=== PATIENT | male | born 1965 | race Hispanic/Latino ===

== ENCOUNTER 2019-12-15 10:49 | Emergency (ER) | payer BC, SELFPAY ==
--- NOTE | 2019-12-15 11:16 | RAD ---
LEFT WRIST 3 VIEWS: HISTORY: Left wrist pain, injury FINDINGS: There is a mildly angulated comminuted fracture of the distal radius.
[2019-12-15] MEDS ORDERED: Ibuprofen 800 MG TAB ONE (11:27)
== END 2019-12-15 11:40 | disposition home or self-care (01) ==
LOC: NAV ERS 10:49
DX: S52.502A Unspecified fracture of the lower end of left radius, initial encounter for closed fracture (principal); F17.210 Nicotine dependence, cigarettes, uncomplicated; I10 Essential (primary) hypertension; V89.9XXA Person injured in unspecified vehicle accident, initial encounter; Z79.899 Other long term (current) drug therapy
CPT/HCPCS: 29125

== ENCOUNTER 2020-01-30 14:12 | Emergency (ER) | payer SELFPAY | END 2020-01-30 14:45 | disposition home or self-care (01) | LOC: NAV ERS 14:12 | DX: M79.602 Pain in left arm (principal); S52.502D Unspecified fracture of the lower end of left radius, subsequent encounter for closed fracture with routine healing; I10 Essential (primary) hypertension; F17.210 Nicotine dependence, cigarettes, uncomplicated | CPT/HCPCS: 99282 ==

== ENCOUNTER 2020-11-04 19:03 | Emergency (ER) | payer SELFPAY ==
[2020-11-04] MEDS ORDERED: Sulfameth/Trimethoprim DS 800-160mg TAB ONE (19:38)
== END 2020-11-04 19:40 | disposition home or self-care (01) ==
LOC: NAV ERS 19:03
DX: L08.9 Local infection of the skin and subcutaneous tissue, unspecified (principal); I10 Essential (primary) hypertension; F17.210 Nicotine dependence, cigarettes, uncomplicated
CPT/HCPCS: 99282

== ENCOUNTER 2022-03-05 07:43 | Emergency (ER) | payer OTHER, SELFPAY | END 2022-03-05 09:06 | disposition home or self-care (01) | LOC: NAV ERS 07:43 | DX: L03.116 Cellulitis of left lower limb (principal); I10 Essential (primary) hypertension; F17.210 Nicotine dependence, cigarettes, uncomplicated | CPT/HCPCS: 99283 ==

== ENCOUNTER 2022-03-13 18:52 | Emergency (ER) | payer BC, SELFPAY | END 2022-03-13 20:24 | disposition home or self-care (01) | LOC: NAV ERS 18:52 | DX: S91.302A Unspecified open wound, left foot, initial encounter (principal); T69.022A Immersion foot, left foot, initial encounter; L30.1 Dyshidrosis [pompholyx]; I10 Essential (primary) hypertension; F17.210 Nicotine dependence, cigarettes, uncomplicated; X58.XXXA Exposure to other specified factors, initial encounter | CPT/HCPCS: 99283 ==

== ENCOUNTER 2022-10-04 08:29 | Emergency (ER) | payer BC ==
[2022-10-04 09:14] LABS: #Eosinphils 0.1 thou/uL (0.0-0.7); #Lymphocytes 0.9 thou/uL (1.20-3.40); #Monocytes 0.4 thou/uL (0.11-0.59); #Neutrophils 3.7 thou/uL (1.40-6.50); %Eosinophils 1.6 % (0.0-10.0); %Lymphocytes 17.9 % (21.0-51.0); %Monocytes 7.5 % (0.0-10.0); Hemoglobin 13.8 g/dL (14.0-18.0); Mean Corpuscular HGB CONC 34.3 g/dL (32.0-36.0); Mean Corpuscular Hemoglobin 31.6 pg (27.0-31.0); Mean Corpuscular Volume 92.3 fl (78.0-98.0); Platelet Count 169 10x3/uL (130-400); RBC Distribution Width 10.7 % (11.5-14.5); Red Blood Cell (RBC) Count 4.37 mill/uL (4.70-6.10); White Blood Cell (WBC) Count 5.1 10x3/uL (4.8-10.8)
[2022-10-04 10:03] LABS: ALT (SGPT) 21 U/L (8-55); AST (SGOT) 17 U/L (5-34); Alkaline Phosphatase 146 U/L (40-110); Anion Gap 12 mmol/L (10-20); BUN (Urea Nitrogen) 13 mg/dL (8.4-25.7); Bilirubin, Total 0.7 mg/dL (0.2-1.2); CK (CPK) 199 U/L (30-200); Calc. Creatinine Clearance 0 mL/min (70-130); Calcium 8.9 mg/dL (7.8-10.44); Carbon Dioxide 23 mmol/L (22-29); Chloride 107 mmol/L (98-107); Estimated GFR 102; Globulin 2.7 g/dL (2.4-3.5); Glucose 102 mg/dL (70-105); Potassium 3.9 mmol/L (3.5-5.1); Protein, Total 6.7 g/dL (6.0-8.3); Sodium 138 mmol/L (136-145)
== END 2022-10-04 11:45 | disposition short-term general hospital (02) ==
LOC: NAV ERS 08:29
DX: I63.9 Cerebral infarction, unspecified (principal); R53.1 Weakness; E78.00 Pure hypercholesterolemia, unspecified; F17.210 Nicotine dependence, cigarettes, uncomplicated; Z79.899 Other long term (current) drug therapy
CPT/HCPCS: 36415; 36416; 70450; 80053; 82550; 83735; 83880; 84484; 85025; 93005; 94760

== ENCOUNTER 2023-04-04 14:47 | Emergency (ER) | payer BC, SELFPAY ==
[2023-04-04] MEDS ORDERED: dilTIAZem CD 120 MG CAP ONE (16:00)
[2023-04-04] MEDS ORDERED: Acetaminophen 325 MG TAB ONE (16:00)
== END 2023-04-04 16:05 | disposition home or self-care (01) ==
LOC: NAV ERS 14:47
DX: R51.9 Headache, unspecified (principal); I10 Essential (primary) hypertension; E78.00 Pure hypercholesterolemia, unspecified; F17.210 Nicotine dependence, cigarettes, uncomplicated; Z79.899 Other long term (current) drug therapy
CPT/HCPCS: 99283

== ENCOUNTER 2023-04-29 12:47 | Emergency (ER) | payer SELFPAY | END 2023-04-29 13:51 | disposition home or self-care (01) | LOC: NAV ERS 12:47 | DX: I10 Essential (primary) hypertension (principal); R51.9 Headache, unspecified; E78.00 Pure hypercholesterolemia, unspecified; F17.210 Nicotine dependence, cigarettes, uncomplicated; Z79.899 Other long term (current) drug therapy; Z79.01 Long term (current) use of anticoagulants; Z79.82 Long term (current) use of aspirin | CPT/HCPCS: 99283 ==

== ENCOUNTER 2024-04-20 15:48 | Emergency (ER) | payer SELFPAY ==
[2024-04-20] MEDS ORDERED: Ondansetron PF 4 MG/2 ML Vial ONE (16:10)
[2024-04-20] MEDS ORDERED: Sodium Chloride 0.9% 1,000 ML ONE (16:10)
[2024-04-20 16:19] LABS: #Monocytes 0.4 thou/uL (0.11-0.59); #Neutrophils 3.4 thou/uL (1.40-6.50); %Basophils 0.9 % (0.0-1.0); %Eosinophils 0.5 % (0.0-10.0); %Lymphocytes 20.5 % (21.0-51.0); %Monocytes 8.2 % (0.0-10.0); %Neutrophils 69.9 % (42.0-75.0); Hematocrit 48.6 % (42.0-52.0); Mean Corpuscular HGB CONC 32.9 g/dL (32.0-36.0); Mean Corpuscular Volume 91.1 fl (78.0-98.0); Mean Platelet Volume 8.4 fL (7.4-10.4); Platelet Count 184 10x3/uL (130-400); RBC Distribution Width 10.8 % (11.5-14.5); Red Blood Cell (RBC) Count 5.34 mill/uL (4.70-6.10); White Blood Cell (WBC) Count 4.9 10x3/uL (4.8-10.8)
[2024-04-20 16:39] LABS: ALT (SGPT) 12 U/L (Less than 45); AST (SGOT) 18 U/L (11-34); Albumin 4.3 g/dL (3.1-4.5); Alkaline Phosphatase 97 U/L (40-110); Anion Gap 13 mmol/L (10-20); BUN (Urea Nitrogen) 11 mg/dL (8.4-25.7); Bilirubin, Total 0.6 mg/dL (0.3-1.2); Calc. Creatinine Clearance 0 mL/min (70-130); Calcium 9.7 mg/dL (7.8-10.44); Carbon Dioxide 23 mmol/L (22-29); Chloride 104 mmol/L (98-107); Estimated GFR 101; Globulin 3.3 g/dL (2.4-3.5); Glucose 103 mg/dL (70-105); Lipase 22 U/L (8-78); Potassium 3.6 mmol/L (3.5-5.1); Protein, Total 7.6 g/dL (6.0-8.3); Sodium 136 mmol/L (136-145)
[2024-04-20 16:45] LABS: Bilirubin Negative (Negative); Blood, Urine Trace (Negative); Clarity Clear (Clear); Glucose, Urine (Dipstick) Negative (Negative); Ketone, Urine Negative (Negative); Leukocyte Negative (Negative); Nitrite Negative (Negative); Protein, Urine (Dipstick) Trace mg/dL (Neg-Trace); Specific Gravity, Urine 1.015 (1.005-1.030)
[2024-04-20] MEDS ORDERED: Lisinopril 20 MG TAB ONE (16:46)
[2024-04-20 16:47] LABS: CAUTI Indications for Culture Dysuria,urgency,freq; RBC/HPF 0-3 HPF (0-3); Squamous Epithelial 0-3 HPF (0-3); Urine Culture Reflex No No; WBC/HPF None Seen HPF (0-3)
[2024-04-20] MEDS ORDERED: Metoprolol Tartrate 25 MG TAB ONE (17:11)
[2024-04-20] MEDS ORDERED: Hydrochlorothiazide 25 MG TAB ONE (17:11)
== END 2024-04-20 17:27 | disposition home or self-care (01) ==
LOC: NAV ERS 15:48
DX: A08.4 Viral intestinal infection, unspecified (principal); I10 Essential (primary) hypertension; F17.210 Nicotine dependence, cigarettes, uncomplicated; E78.00 Pure hypercholesterolemia, unspecified; Z86.73 Personal history of transient ischemic attack (TIA), and cerebral infarction without residual deficits; Z79.82 Long term (current) use of aspirin; Z79.01 Long term (current) use of anticoagulants; Z79.899 Other long term (current) drug therapy
CPT/HCPCS: 80053; 81001; 83690; 85025; 93005; 96374; J2405; J7030